=== PATIENT | male | born 1945 | race Caucasian/White ===

== ENCOUNTER → 2022-05-27 15:10 | Outpatient (CLI) | payer MEDICARE, OTHER, SELFPAY ==
--- NOTE | 2022-05-27 15:16 | XR_ITS ---
FINAL REPORT CLINICAL HISTORY: non healing wound FINDINGS: RIGHT FOOT Three weight-bearing views of the right foot demonstrate no acute fracture or dislocation. There is mild hallux valgus deformity. There is mild degenerative change of the 1st MTP joint. There is a subchondral cyst or bony erosion in the medial head of the 1st metatarsal. No other evidence of bony erosion. There are calcaneal spurs. IMPRESSION: Subchondral cyst or bony erosion in the medial head of the 1st metatarsal. No other evidence of bony erosion is identified. If indicated, MRI may be helpful to further evaluate for osteomyelitis. Reviewed, Interpreted and Dictated by Wesly Saenz III, MD Transcribed by Suellen Nam Authenticated and . [facility]
[2022-05-27 16:56] LABS: Basophils % 0.4 % (0.1-2.0); Eosinophils # 0.2 K/mm3 (0.0-0.4); Eosinophils % 2.3 % (0.1-12.0); Hematocrit 37.8 % (42.0-52.0); Hemoglobin 11.6 g/dL (14.1-18.0); Lymphocytes # 1.3 K/mm3 (0.7-4.5); Lymphocytes % 13.6 % (10-50); Mean Corpuscular HGB Conc 30.7 g/dL (31.8-35.4); Mean Corpuscular Hemoglobin 30.3 pg (27.0-31.2); Mean Corpuscular Volume 98.7 fl (80-94); Mean Platelet Volume 7.9 fl (7.4-10.4); Monocytes # 0.4 K/mm3 (0.1-1.0); Neutrophils # 7.7 K/mm3 (1.8-7.8); Neutrophils % 79.7 % (37.0-80.0); Platelet Count 290 K/mm3 (142-424); Red Blood Count 3.83 M/mm3 (4.60-6.20); Red Cell Distribution Width 14.5 % (11.5-17.5); White Blood Count 9.6 K/mm3 (4.8-10.8)
[2022-05-27 17:22] LABS: Hemoglobin A1C 8.7 % (4.0-6.0)
[2022-05-27 18:24] LABS: Alanine Aminotransferase 24 U/L (12-78); Albumin Level 3.7 g/dl (3.5-5.0); Albumin/Globulin Ratio 1.2 (1.1-1.8); Alkaline Phosphatase 90 U/L (38-126); Anion Gap 13.6 mEq/L (5-15); Aspartate Amino Transferase 45 U/L (17-59); Blood Urea Nitrogen 21 mg/dl (9-20); Carbon Dioxide 30 mmol/L (22.0-30.0); Chloride 101 mmol/L (98-107); Estimated Glomerular Filt Rate 73 ml/min (>60); GFR (African American) 88 ML/MIN (>60); Globulin 3.2 g/dL (1.3-3.2); Glucose 267 mg/dl (74-100); Potassium 4.6 mmoL/L (3.5-5.1); Sodium 140 mmol/L (136-145); Total Protein,Serum 6.9 g/dl (6.3-8.2)
[2022-05-27 18:29] LABS: C-Reactive Protein 4.1 mg/L (0-4)
[2022-05-27 18:47] LABS: Bilirubin,Total < 0.1 mg/dl (0.2-1.3)
[2022-05-27 19:03] LABS: Erythrocyte Sedimentation Rate 76 mm/hr (0-20)
== END ==
PROVIDERS: PCP Family Medicine; Visit Provider Nurse Practitioner Family
DX: E11.621 Type 2 diabetes mellitus with foot ulcer (principal); S91.104A Unspecified open wound of right lesser toe(s) without damage to nail, initial encounter; Z79.4 Long term (current) use of insulin
CPT/HCPCS: 36415; 73630; 80053; 83036; 85025; 85651; 86140; 87070; 87077; 87186; 87205

== ENCOUNTER → 2022-06-10 15:05 | Outpatient (CLI) | payer MEDICARE, OTHER, SELFPAY ==
--- NOTE | 2022-06-10 15:06 | US_ITS ---
FINAL REPORT CLINICAL HISTORY: DECREASED PEDAL PULSES,EDEMA, WOUND RT DORSAL FOOT,DM,HTN FINDINGS: ANKLE/BRACHIAL INDICES FINDINGS: Pressure indices are as follows: RIGHT LOWER EXTREMITY: Ankle brachial pressure index: 0.93 Comments: Borderline LEFT LOWER EXTREMITY: Ankle brachial pressure index: 1.01 Comments: Normal IMPRESSION: No evidence of significant obstructive peripheral vascular disease of the lower extremities. Reviewed, Interpreted and Dictated by Wesly Saenz III, MD Transcribed by Santiago Fowler Authenticated and [facility]
== END ==
PROVIDERS: PCP Family Medicine; Visit Provider Nurse Practitioner Family
DX: R09.89 Other specified symptoms and signs involving the circulatory and respiratory systems (principal)
CPT/HCPCS: 93923

== ENCOUNTER → 2022-06-21 14:38 | Outpatient (CLI) | payer MEDICARE, OTHER, SELFPAY ==
--- NOTE | 2022-06-21 14:39 | CT_ITS ---
FINAL REPORT TECHNIQUE: Thin section axial CT images the right foot with coronal and sagittal reformats were performed. This study was performed with techniques to keep radiation doses as low as reasonably achievable (ALARA). Individualized dose reduction techniques using automated exposure control or adjustment of mA and/or kV according to the patient''s size were employed. CLINICAL HISTORY: wound FINDINGS: There is no acute fracture or dislocation of the right foot. There are mild degenerative changes and mild hallux valgus deformity. There are erosions of the medial head of the 1st metatarsal with overlying soft tissue swelling which may be infectious or reactive. There is sclerosis of the medial sesamoid bone of the great toe. There is soft tissue defect at the plantar forefoot at the level of the 4th metatarsal head with a questionable, small bony erosion. Osteomyelitis not excluded. IMPRESSION: Soft tissue defect at the plantar forefoot, at the level of the 4th metatarsal head, with questionable small bony erosion. Osteomyelitis not excluded. Erosions of the medial head of the 1st metatarsal with overlying soft tissue swelling. Osteomyelitis not excluded. Consider MRI for further evaluation. Reviewed, Interpreted and Dictated by Wesly Saenz III, MD Transcribed by Sharon Huggins Authenticated and [facility]
== END ==
PROVIDERS: PCP Family Medicine; Visit Provider Nurse Practitioner Family
DX: S91.104A Unspecified open wound of right lesser toe(s) without damage to nail, initial encounter (principal)
CPT/HCPCS: 73700

== ENCOUNTER 2022-06-27 14:58 | Outpatient (RCR) | payer MEDICARE, OTHER, SELFPAY | END 2022-06-27 15:30 | disposition home or self-care (01) | LOC: PT 14:58 | PROVIDERS: Visit Provider Nurse Practitioner Family | DX: E11.621 Type 2 diabetes mellitus with foot ulcer (principal); L97.512 Non-pressure chronic ulcer of other part of right foot with fat layer exposed; Z79.4 Long term (current) use of insulin | CPT/HCPCS: 97760 ==

== ENCOUNTER → 2022-08-22 15:32 | Outpatient (CLI) | payer MEDICARE, OTHER, SELFPAY ==
[2022-08-22 16:06] LABS: Basophils # 0.1 K/mm3 (0-0.2); Basophils % 0.5 % (0.1-2.0); Eosinophils # 0.3 K/mm3 (0.0-0.4); Eosinophils % 2.6 % (0.1-12.0); Hematocrit 35.3 % (42.0-52.0); Hemoglobin 11.2 g/dL (14.1-18.0); Lymphocytes # 1.1 K/mm3 (0.7-4.5); Lymphocytes % 11.1 % (10-50); Mean Corpuscular HGB Conc 31.9 g/dL (31.8-35.4); Mean Corpuscular Hemoglobin 30.8 pg (27.0-31.2); Mean Corpuscular Volume 96.6 fl (80-94); Mean Platelet Volume 8.1 fl (7.4-10.4); Monocytes # 0.4 K/mm3 (0.1-1.0); Monocytes % 4.5 % (1.7-9.3); Neutrophils % 81.3 % (37.0-80.0); Platelet Count 286 K/mm3 (142-424); Red Blood Count 3.66 M/mm3 (4.60-6.20); Red Cell Distribution Width 14.8 % (11.5-17.5); White Blood Count 9.9 K/mm3 (4.8-10.8)
[2022-08-22 16:33] LABS: Alanine Aminotransferase 19 U/L (12-78); Albumin Level 3.7 g/dl (3.5-5.0); Albumin/Globulin Ratio 1.2 (1.1-1.8); Alkaline Phosphatase 100 U/L (38-126); Anion Gap 18.6 mEq/L (5-15); Aspartate Amino Transferase 29 U/L (17-59); Bilirubin,Total 0.3 mg/dl (0.2-1.3); Blood Urea Nitrogen 25 mg/dl (9-20); Calcium 9.2 mg/dl (8.4-10.2); Carbon Dioxide 29 mmol/L (22.0-30.0); Chloride 99 mmol/L (98-107); Erythrocyte Sedimentation Rate 117 mm/hr (0-20); Estimated Glomerular Filt Rate 59 ml/min (>60); GFR (African American) 71 ML/MIN (>60); Glucose 211 mg/dl (74-100); Potassium 4.6 mmoL/L (3.5-5.1); Sodium 142 mmol/L (136-145); Total Protein,Serum 6.7 g/dl (6.3-8.2)
[2022-08-22 16:40] LABS: C-Reactive Protein 16.7 mg/L (0-4)
== END ==
PROVIDERS: PCP Family Medicine; Visit Provider Nurse Practitioner Family
DX: E11.621 Type 2 diabetes mellitus with foot ulcer (principal); L97.512 Non-pressure chronic ulcer of other part of right foot with fat layer exposed; S91.104D Unspecified open wound of right lesser toe(s) without damage to nail, subsequent encounter; Z79.4 Long term (current) use of insulin
CPT/HCPCS: 36415; 80053; 85025; 85651; 86140